=== PATIENT | female | born 1975 | race Caucasian/White ===

== ENCOUNTER 2024-06-15 12:46 | Outpatient (CLI) | payer BC | END 2024-06-15 12:47 | disposition home or self-care (01) | LOC: CSHMRI 12:46 | PROVIDERS: ATTEND Psychiatry & Neurology Neurology | DX: R41.3 Other amnesia (principal); H74.8X1 Other specified disorders of right middle ear and mastoid; J34.89 Other specified disorders of nose and nasal sinuses | CPT/HCPCS: 70553; 76376 ==